=== PATIENT | female | born 2000 | race African-American/Black ===

== ENCOUNTER 2023-02-24 12:19 | Emergency (ER) | payer OTHER ==
[~2023-02-24] VITALS: Ht 167.6 cm; Wt 79.4 kg
[2023-02-24] MEDS ORDERED: ZITHROMAX500 MG PO (14:05)
== END 2023-02-24 14:23 | disposition home or self-care (01) ==
LOC: ER 12:20
DX: H10.30 Unspecified acute conjunctivitis, unspecified eye (principal)